=== PATIENT | female | born 1930 | race Caucasian/White ===

== ENCOUNTER 2016-09-14 02:21 | Emergency (ER) | payer OTHER ==
--- NOTE | ~2016-09-14 | CR157 ---
[facility] A Service of [facility] & [facility] RADIOLOGY TEXT RESULTS PATIENT: TAMIKO DEAL LOCATION: [facility] : 29 UNIT #: [id number] AGE: [address]: John Gold MD SEX: F ORDER DR: [id number] [facility] [address] [place], [place] [address] [id number] E MR#: [id number] Acc #: [id number] NAME: TAMIKO DEAL. : 1930 SEX: F STUDY DATE/TIME: 09/14/2016 3:09 UNIT: [facility] ROOM: STUDY DESCRIPTION: CR Humerus Min 2 View Rt Attending Physician: John Gold M.D. Ordering Physician: John Gold M.D. Primary Care Physician: Alyssa Mena M.D. MEDICAL IMAGING REPORT This report is preliminary unless electronic signature is present EXAM Right humerus INDICATION Right humerus pain after fall tonight. FINDINGS There is no evidence of fracture, dislocation, or radiopaque foreign body. No focal bone lesions are seen. IMPRESSION Normal humerus. Dictated by... Brad Tran M.D. THIS IS AN ELECTRONICALLY VERIFIED REPORT Brad Tran M.D. at 09/14/2016 1:31 PM ANICETO/scott TD: 09/14/2016 10:08 JOB #: [id number] MEDICAL IMAGING REPORT Page 1 of 1 COPY
--- NOTE | ~2016-09-14 | CT71 ---
[facility] A Service [facility] RADIOLOGY TEXT RESULTS PATIENT: TAMIKO DEAL LOCATION: [facility] : 29 UNIT #: [id number] AGE: [address]: John Gold MD SEX: F ORDER DR: [id number] [facility] [address] [place], [place] [address] [id number] E MR#: [id number] Acc #: [id number] NAME: TAMIKO DEAL. : 1930 SEX: F STUDY DATE/TIME: 09/14/2016 3:54 UNIT: [facility] ROOM: STUDY DESCRIPTION: CT Head Wo Contrast Attending Physician: John Gold M.D. Ordering Physician: John Gold M.D. Primary Care Physician: Alyssa Mena M.D. MEDICAL IMAGING REPORT This report is preliminary unless electronic signature is present EXAM CT scan of the head without contrast INDICATION Pain in back of head that travels down neck after a fall today. COMPARISON 04/06/2016. FINDINGS Unenhanced images were obtained through the brain. This CT examination was performed with one or more of the following radiation dose reduction techniques: automatic exposure control, adjustment of mA and/or kV according to patient size, and iterative reconstruction. The ventricles and subarachnoid spaces are normal and there are no masses, extraaxial fluid collections or hemorrhage. There is some soft tissue swelling in the scalp posteriorly. The skull is intact. IMPRESSION 1. Small posterior scalp hematoma. 2. Otherwise normal. Dictated by... Brad Tran M.D. THIS IS AN ELECTRONICALLY VERIFIED REPORT Brad Tran M.D. at 09/14/2016 1:31 PM [facility] A Service [facility] RADIOLOGY TEXT RESULTS PATIENT: TAMIKO DEAL LOCATION: [facility] : 29 UNIT #: [id number] AGE: [address]: John Gold MD SEX: F ORDER DR: Eliza TD: 09/14/2016 10:55 JOB #: [id number] MEDICAL IMAGING REPORT Page 1 of 1 COPY
--- NOTE | ~2016-09-14 | CT52 ---
[facility] A Service of [facility] RADIOLOGY TEXT RESULTS PATIENT: TAMIKO DEAL LOCATION: [facility] : 29 UNIT #: [id number] AGE: [address]: John Gold MD SEX: F ORDER DR: [id number] [facility] [address] [place], [place] [address] [id number] E MR#: [id number] Acc #: [id number] NAME: TAMIKO DEAL. : 1930 SEX: F STUDY DATE/TIME: 09/14/2016 4:06 UNIT: [facility] ROOM: STUDY DESCRIPTION: CT Cervical Spine Wo Cont Attending Physician: John Gold M.D. Ordering Physician: John Gold M.D. Primary Care Physician: Alyssa Mena M.D. MEDICAL IMAGING REPORT This report is preliminary unless electronic signature is present EXAM CT scan cervical spine without contrast. HISTORY Fell today with neck pain. COMPARISON 04/06/2016. FINDINGS Axial 2 mm images were obtained through the cervical spine and sagittal coronal reconstructions were generated. This CT exam was performed with one or more of the following radiation dose reduction techniques: automatic exposure control, adjustment of mA and/or kV according to patient size, and iterative reconstruction. FINDINGS There is marked degenerative narrowing at C3-4, C4-5 and C5-6 with reversal of the normal cervical lordosis. The appearance is stable from 04/06/16. There is no fracture or subluxation identified. IMPRESSION Marked mid cervical spine degenerative changes with reversal of the normal cervical lordosis. No acute findings identified. There has been no change from 04/06/2016. Dictated by... Brad Tran M.D. THIS IS AN ELECTRONICALLY VERIFIED REPORT [facility] A Service [facility] RADIOLOGY TEXT RESULTS PATIENT: TAMIKO DEAL LOCATION: [facility] : 29 UNIT #: [id number] AGE: [address]: John Gold MD SEX: F ORDER DR: Brad Tran M.D. at 09/14/2016 1:31 PM ANICETO/malini TD: 09/14/2016 11:06 JOB #: [id number] MEDICAL IMAGING REPORT Page 1 of 1 COPY
--- NOTE | ~2016-09-14 | CR230 ---
[facility] A Service of [facility] & [facility] RADIOLOGY TEXT RESULTS PATIENT: TAMIKO DEAL LOCATION: [facility] : 29 UNIT #: [id number] AGE: [address]: John Gold MD SEX: F ORDER DR: [id number] [facility] [address] [place], [place] [address] [id number] E MR#: [id number] Acc #: [id number] NAME: TAMIKO DEAL : 1930 SEX: F STUDY DATE/TIME: 09/14/2016 3:06 UNIT: [facility] ROOM: STUDY DESCRIPTION: CR Shoulder Min 2 View Rt Attending Physician: John Gold M.D. Ordering Physician: John Gold M.D. Primary Care Physician: Alyssa Mena M.D. MEDICAL IMAGING REPORT This report is preliminary unless electronic signature is present EXAM Right shoulder INDICATION Right shoulder pain after fall tonight. FINDINGS AP view with internal and external rotation of the shoulder girdle shows satisfactory relationship of the humeral head and glenoid fossa. The joint space is normal. There is no identifiable fracture or dislocation or bony destructive process about the shoulder girdle anatomy. The acromioclavicular joint is normal. There is no radiopaque foreign body in the region. IMPRESSION Normal shoulder. Dictated by... Brad Tran M.D. THIS IS AN ELECTRONICALLY VERIFIED REPORT Brad Tran M.D. at 09/14/2016 1:30 PM ANICTEO/scott TD: 09/14/2016 10:07 JOB #: [id number] MEDICAL IMAGING REPORT Page 1 of 1 COPY
[~2016-09-14 02:21] MED LIST: BACLOFEN20 MG PO; GLUCOSAMIN-CHO1 EACH PO; LANTUS SOLOSTAR3 ML SUBQ; METFORMIN HCL500 M1 PO; NAMZARIC 28 MG1 EACH PO; TRAMADOL HCL50 M2 PO; ZOLOFT PO
[2016-09-14 03:55] LABS: BASOPHIL# 0.1 X10e3 (0-0.3); BASOPHIL% 0.8 % (0-2.5); EOSINOPHIL# 0.4 X10e3 (0-0.7); EOSINOPHIL% 4.5 % (0.0-7.0); HEMATOCRIT 38.8 % (35.0-45.0); HEMOGLOBIN 12.1 gm/dL (12.0-16.0); LYMPHOCYTE# 3.6 X10e3 (1.0-3.5); LYMPHOCYTE% 39.2 % (17.0-45.0); MEAN CELL VOLUME 82.6 FL (83-96); MEAN CORPUSCULAR HEMOGLOBIN 25.8 PG (28-34); MEAN CORPUSCULAR HGB CONC 31.2 g/dL (30-36); MEAN PLATELET VOLUME 9.3 FL (6.5-11.5); MONOCYTE# 0.9 X10e3 (0-1.0); MONOCYTE% 9.6 % (3.0-12.0); NEUTROPHIL# 4.2 X10e3 (1.5-7.1); NEUTROPHIL% 45.9 % (40-75); PLATELET COUNT 270 X10e3 (140-420); RED CELL DISTRIBUTION WIDTH 16.3 % (11.0-15.5); WHITE BLOOD COUNT 9.1 X10e3 (4.0-10.5)
[2016-09-14 03:56] LABS: DIFF IND NO
[2016-09-14 04:07] LABS: CALCIUM SERUM 8.7 mg/dL (8.4-10.2); GLOM FILT RATE Estimated 50.6 mL/min (>60); POTASSIUM 3.9 mmol/L (3.5-5.1)
== END 2016-09-14 05:30 | disposition other institution (70) ==
LOC: CED 02:21
PROVIDERS: Emergency Medicine
DX: S00.03XA Contusion of scalp, initial encounter (principal); E11.9 Type 2 diabetes mellitus without complications; G30.9 Alzheimer's disease, unspecified; F02.80 Dementia in other diseases classified elsewhere, unspecified severity, without behavioral disturbance, psychotic disturbance, mood disturbance, and anxiety; Z88.6 Allergy status to analgesic agent; Z79.4 Long term (current) use of insulin; Z79.899 Other long term (current) drug therapy; W18.30XA Fall on same level, unspecified, initial encounter; Y92.9 Unspecified place or not applicable
CPT/HCPCS: 70450; 72125; 73030; 73060; 80048; 82947; 85025; 96374; 96375; 99284; J2060; J2270; J2405